=== PATIENT | female | born 1985 | race Caucasian/White ===

== ENCOUNTER 2018-03-14 06:52 | Emergency (ER) | payer BC ==
[2018-03-14] MEDS ORDERED: SODIUM CHLORIDE 0.9% 1,000 ML IV STA (07:10)
[2018-03-14] MEDS ORDERED: ONDANSETRON 4 MG/2 ML VIAL IVP STA (07:10)
[2018-03-14] MEDS ORDERED: PANTOPRAZOLE 40 MG/10 ML VIAL IVP STA (07:10)
[2018-03-14] MEDS ORDERED: MAG HYDROX/AL HYDROX/SIMETH 30 ML, HYOSCYAMINE ELIXIR 10 ML, CIMETIDINE HCL 300 MG, LID... PO STA ×4 (07:11)
--- NOTE | 2018-03-14 07:16 | ED ---
Abdominal Pain HPI - General Chief Complaint: Abdominal Pain Stated Complaint: abd pain Time Seen by Provider: 03/14/18 07:00 Source: patient, RN notes reviewed, old records reviewed Mode of arrival: ambulatory Limitations: no limitations - History of Present Illness Initial Comments: Is a 32-year-old female presents emergency department today with chief complaint of 2 days of epigastric abdominal pain radiating towards her back. She has history of cholecystectomy. She was seen by her PCP initially they thought it was either gastritis or anxiety. She is prescribed Prilosec yesterday as well as Xanax. She reports that those medications are helping with her symptoms. She does feel slightly nauseated. No vomiting episodes Patient doesn't diarrhea. She is concerned she had some alcoholic beverages few days prior that she could have pancreatitis. Patient reports that she has not had any recent alcohol. Patient denies any fevers or chills chest pain or shortness breath. - Related Data Home Medications Medication Instructions Recorded Confirmed ALPRAZolam [Xanax] 0.5 mg PO BID PRN 03/14/18 03/14/18 Ascorbic Acid [Vitamin C] 1,000 mg PO DAILY 03/14/18 03/14/18 Cholecalciferol [Vitamin D3] 1,000 unit PO DAILY 03/14/18 03/14/18 Ibuprofen [Motrin Ib] 400 mg PO Q6H PRN 03/14/18 03/14/18 Multivitamin,Therapeutic [Thera] 1 tab PO DAILY 03/14/18 03/14/18 [place]-3 Fatty Acids [[place]-3] 1,000 mg PO DAILY 03/14/18 03/14/18 Omeprazole 20 mg PO DAILY 03/14/18 03/14/18 buPROPion XL [Wellbutrin Xl] 150 mg PO DAILY 03/14/18 03/14/18 Previous Rx's Medication Instructions Recorded Sucralfate [Carafate] 1 gm PO ACHS #20 tablet 03/14/18 Allergies Allergy/AdvReac Type Severity Reaction Status Date / Time clavulanic acid Allergy Rash/Hives Verified 03/14/18 08:15 [From Augmentin] amoxicillin AdvReac Unknown Rash/Hives Verified 03/14/18 08:15 Review of Systems ROS Statement: Those systems with pertinent positive or pertinent negative responses have been documented in the HPI. ROS Other: All systems not noted in ROS Statement are negative. Past Medical History Past Medical History: No Reported History Additional Past Medical History / Comment(s): MENNORHAGIA History of Any Multi-Drug Resistant Organisms: None Reported Past Surgical History: Cholecystectomy, Hernia Repair Additional Past Surgical History / Comment(s): UMBILICAL HERNIA Past Anesthesia/Blood Transfusion Reactions: No Reported Reaction, Motion Sickness Past Psychological History: No Psychological Hx Reported Smoking Status: Former smoker Past Alcohol Use History: Rare Past Drug Use History: None Reported General Exam - General Exam Comments Initial Comments: This is a 32-year-old female. Alert and oriented. No significant distress. General: Well appearing, well nourished, in no distress. Oriented x 3, normal mood and affect . Ambulating without difficulty. Skin: Good turgor, no rash, unusual bruising or prominent lesions Hair: Normal texture and distribution. HEENT: Head: Normocephalic, atraumatic, no visible or palpable masses, depressions, or scaring. Eyes: Visual acuity intact, conjunctiva clear, sclera non-icteric, EOM intact, PERRL. Mouth: Mucous membranes moist, no mucosal lesions. Teeth/Gums: No obvious caries or periodontal disease. No gingival inflammation or significant resorption. Heart: No cardiomegaly or thrills; regular rate and rhythm, no murmur or gallop Lungs: Clear to auscultation and percussion Abdomen: Bowel sounds normal, Patient has epigastric tenderness. No evidence of masses, or hernia. Back: Spine normal without deformity or tenderness, no CVA tenderness Extremities: No amputations or deformities, cyanosis, edema or varicosities, peripheral pulses intact Musculoskeletal: Normal gait and station. No misalignment, asymmetry, crepitation, defects, tenderness, masses, effusions, decreased range of motion, instability, atrophy or abnormal strength or tone in the head, neck, spine, ribs , pelvis or extremities. Neurologic: CN 2-12 normal. Sensation to pain, touch, and proprioception normal. DTRs normal in upper and lower extremities. No pathologic reflexes. Psychiatric: Oriented X3, intact recent and remote memory, judgment and insight , normal mood and affect. Limitations: no limitations Course Vital Signs 03/14/18 06:53 Temperature 98.2 F Pulse Rate 66 Respiratory 16 Rate Blood Pressure 135/84 O2 Sat by Pulse 99 Oximetry Medical Decision Making - Medical Decision Making This is a 32-year-old female presents emergency department today with chief complaint of epigastric abdominal pain leading towards her back. She reports her past 2 days. Started on Prilosec by PCP. She taken one pill of Prilosec. Patient states that she is concerned for any worsening symptoms and returned here for evaluation. Patient is given IV fluids, GI cocktail protonic lab work was obtained. All lab work was reviewed and normal. KUB is negative for any acute process, moderate stool burn. Patient ports that she is continued to have some pain and discomfort. Her EKG was also reviewed and normal. In the semi-discussed likely gastritis or ulcer and can take some time to heal. She needs to have a bland, clear liquid diet for the next few days. I will add a prescription for Carafate. Given a referral for GI. Discussed return parameters. Patient crease to treatment plan will comply. Return parameters were discussed. - Lab Data Result diagrams: 03/14/18 07:25 03/14/18 07:25 Lab Results 03/14/18 03/14/18 03/14/18 Range/Units 07:25 07:25 07:32 WBC 6.1 (3.8-10.6) k/uL RBC 5.06 (3.80-5.40) m/uL Hgb 15.2 (11.4-16.0) gm/dL Hct 46.5 H (34.0-46.0) % MCV 91.9 (80.0-100.0) fL MCH 30.0 (25.0-35.0) pg MCHC 32.6 (31.0-37.0) g/dL RDW 12.4 (11.5-15.5) % Plt Count 111 L (150-450) k/uL Neutrophils % 77 % Lymphocytes % 16 % Monocytes % 5 % Eosinophils % 1 % Basophils % 1 % Neutrophils # 4.7 (1.3-7.7) k/uL Lymphocytes # 1.0 (1.0-4.8) k/uL Monocytes # 0.3 (0-1.0) k/uL Eosinophils # 0.1 (0-0.7) k/uL Basophils # 0.0 (0-0.2) k/uL Sodium 143 (137-145) mmol/L Potassium 4.3 (3.5-5.1) mmol/L Chloride 108 H (98-107) mmol/L Carbon Dioxide 26 (22-30) mmol/L Anion Gap 9 mmol/L BUN 9 (7-17) mg/dL Creatinine 0.58 (0.52-1.04) mg/dL Est GFR (CKD-EPI)AfAm >90 (>60 ml/min/1.73 sqM) Est GFR (CKD-EPI)NonAf >90 (>60 ml/min/1.73 sqM) Glucose 106 H (74-99) mg/dL Calcium 10.1 (8.4-10.2) mg/dL Total Bilirubin 0.4 (0.2-1.3) mg/dL AST 26 (14-36) U/L ALT 27 (9-52) U/L Alkaline Phosphatase 42 (38-126) U/L Total Protein 7.7 (6.3-8.2) g/dL Albumin 4.5 (3.5-5.0) g/dL Amylase 60 (30-110) U/L Lipase 114 (23-300) U/L Urine Color Urine Appearance (Clear) Urine pH (5.0-8.0) Ur Specific [place] (1.001-1.035) Urine Protein (Negative) Urine Glucose (UA) (Negative) Urine Ketones (Negative) Urine Blood (Negative) Urine Nitrite (Negative) Urine Bilirubin (Negative) Urine Urobilinogen (<2.0) mg/dL Ur Leukocyte Esterase (Negative) Urine HCG, Qual Not Detected (Not Detectd) 03/14/18 Range/Units 07:32 WBC (3.8-10.6) k/uL RBC (3.80-5.40) m/uL Hgb (11.4-16.0) gm/dL Hct (34.0-46.0) % MCV (80.0-100.0) fL MCH (25.0-35.0) pg MCHC (31.0-37.0) g/dL RDW (11.5-15.5) % Plt Count (150-450) k/uL Neutrophils % % Lymphocytes % % Monocytes % % Eosinophils % % Basophils % % Neutrophils # (1.3-7.7) k/uL Lymphocytes # (1.0-4.8) k/uL Monocytes # (0-1.0) k/uL Eosinophils # (0-0.7) k/uL Basophils # (0-0.2) k/uL Sodium (137-145) mmol/L Potassium (3.5-5.1) mmol/L Chloride (98-107) mmol/L Carbon Dioxide (22-30) mmol/L Anion Gap mmol/L BUN (7-17) mg/dL Creatinine (0.52-1.04) mg/dL Est GFR (CKD-EPI)AfAm (>60 ml/min/1.73 sqM) Est GFR (CKD-EPI)NonAf (>60 ml/min/1.73 sqM) Glucose (74-99) mg/dL Calcium (8.4-10.2) mg/dL Total Bilirubin (0.2-1.3) mg/dL AST (14-36) U/L ALT (9-52) U/L Alkaline Phosphatase (38-126) U/L Total Protein (6.3-8.2) g/dL Albumin (3.5-5.0) g/dL Amylase (30-110) U/L Lipase (23-300) U/L Urine Color Colorless Urine Appearance Clear (Clear) Urine pH 7.0 (5.0-8.0) Ur Specific [place] 1.003 (1.001-1.035) Urine Protein Negative (Negative) Urine Glucose (UA) Negative (Negative) Urine Ketones Negative (Negative) Urine Blood Negative (Negative) Urine Nitrite Negative (Negative) Urine Bilirubin Negative (Negative) Urine Urobilinogen <2.0 (<2.0) mg/dL Ur Leukocyte Esterase Negative (Negative) Urine HCG, Qual (Not Detectd) 03/14/18 07:30 EKG shows normal sinus rhythm normal EKG. Gingivitis 61 bpm. Intervals 144 ms. QS duration 100 ms. QT QTc is 450/453 ms. No evidence of ST elevation or T-wave inversion. - Radiology Data Radiology results: report reviewed Moderate stool burn. No evidence of bowel ejection free air. Possible 4 mm left renal calculus. Disposition Clinical Impression: Epigastric abdominal pain Disposition: HOME SELF-CARE Condition: Good Instructions: Gastritis (ED), Diet for Stomach Ulcers and Gastritis (ED) Additional Instructions: Patient is follow-up with primary care physician. Follow-up with GI specialist. Continue Prilosec daily. Add the Carafate and meals and at night. Return to emergency department if any alarming signs or symptoms occur. Prescriptions: Sucralfate [Carafate] 1 gm PO ACHS #20 tablet Is patient prescribed a controlled substance at d/c from ED?: No Referrals: Carolyn Nunez MD [Primary Care Provider] - 1-2 days Latoya Barfield MD [STAFF PHYSICIAN] - 1-2 days Time of Disposition: 08:56
[2018-03-14 07:37] LABS: Basophils % (A) 1 %; Eosinophils # (A) 0.1 k/uL (0-0.7); Eosinophils % (A) 1 %; HCT 46.5 % (34.0-46.0); HGB 15.2 gm/dL (11.4-16.0); Lymphocytes % (A) 16 %; MCHC 32.6 g/dL (31.0-37.0); MCV 91.9 fL (80.0-100.0); Mean Platelet Volume 10.1; Monocytes # (A) 0.3 k/uL (0-1.0); Monocytes % (A) 5 %; Neutrophils # (A) 4.7 k/uL (1.3-7.7); Neutrophils % (A) 77 %; Platelet Count 111 k/uL (150-450); RBC 5.06 m/uL (3.80-5.40); RDW 12.4 % (11.5-15.5); WBC 6.1 k/uL (3.8-10.6)
[2018-03-14 07:48] LABS: Appearance,Urine Clear (Clear); Bilirubin,Urine Negative (Negative); Blood,Urine Negative (Negative); Color,Urine Colorless; Glucose,Urine (UA) Negative (Negative); Ketones,Urine Negative (Negative); Leukocyte Esterase,Urine Negative (Negative); Nitrite,Urine Negative (Negative); Protein,Urine Negative (Negative); Specific Gravity,Urine 1.003 (1.001-1.035); Urobilinogen,Urine <2.0 mg/dL (<2.0)
[2018-03-14 07:57] LABS: ALT 27 U/L (9-52); AST 26 U/L (14-36); Albumin 4.5 g/dL (3.5-5.0); Alkaline Phosphatase 42 U/L (38-126); Amylase 60 U/L (30-110); Anion Gap 9 mmol/L; Blood Urea Nitrogen 9 mg/dL (7-17); Calcium 10.1 mg/dL (8.4-10.2); Carbon Dioxide 26 mmol/L (22-30); Chloride 108 mmol/L (98-107); Glucose 106 mg/dL (74-99); Lipase 114 U/L (23-300); Potassium 4.3 mmol/L (3.5-5.1); Sodium 143 mmol/L (137-145); Total Bilirubin 0.4 mg/dL (0.2-1.3); Total Protein 7.7 g/dL (6.3-8.2)
[2018-03-14] MEDS ORDERED: MORPHINE SULFATE 2 MG/ML SYRINGE IVP ONE (08:43)
--- NOTE | 2018-03-14 08:44 | XR ---
EXAMINATION TYPE: XR KUB DATE OF EXAM: 03/14/2018 CLINICAL DATA: 32 year-old female with abdominal pain, [facility] COMPARISON: 03/22/2012 FINDINGS: Lung bases are clear. No evidence for free intraperitoneal air. No dilated small bowel or air-fluid levels. Scattered air and stool seen throughout the colon extendi ng distally into the rectum. Moderate stool burden. Possible 4 mm calcification left mid abdomen. Cholecystectomy clips. IMPRESSION: 1. Moderate stool burden. 2.No evidence of bowel obstruction or free intraperitoneal air. 3. Possible 4 mm left renal calculus.
[2018-03-14 09:34] VITALS: BP 132/69; PULSE 58; RESP 18; TEMP 98.8
== END 2018-03-14 09:35 | disposition home or self-care (01) ==
LOC: EC 06:52
DX: R10.13 Epigastric pain (principal); R11.0 Nausea; M54.9 Dorsalgia, unspecified; Z79.899 Other long term (current) drug therapy; Z87.891 Personal history of nicotine dependence; Z88.0 Allergy status to penicillin; Z90.49 Acquired absence of other specified parts of digestive tract; Z98.890 Other specified postprocedural states
CPT/HCPCS: 36415; 93005; 80053; 82150; 83690; 85025; 81003; 81025; 74018; 99284; 96374; 96375 ×2; 96361; J2405; J2270; C9113

== ENCOUNTER → 2020-09-21 | Outpatient (CLI) | payer BC ==
--- NOTE | 2020-09-21 12:23 | XR ---
EXAMINATION TYPE: XR lumbosacral spine min 4V DATE OF EXAM: 09/21/2020 COMPARISON: None HISTORY: Sciatica left side TECHNIQUE: 5 view lumbar spine FINDINGS: There are 5 lumbar-type vertebral bodies. Pedicles are intact. Subtle scoliosis present ecc entric to the left. Mild posterior disc space narrowing at L4-5 is present. Remaining disc heights ar e preserved. Vertebral body heights are preserved. Facets are normal. No spondylolytic defects are ev ident. IMPRESSION: 1. Normal 5 view lumbar spine
== END | disposition home or self-care (01) ==
LOC: RADXRYALE 08:36
PROVIDERS: ATTEND Internal Medicine
DX: M54.32 Sciatica, left side (principal)
CPT/HCPCS: 72110

== ENCOUNTER → 2021-05-11 | Outpatient (CLI) | payer BC ==
[2021-05-11 08:58] VITALS: BP 112/72; PULSE 71; RESP 16; TEMP 98.3
--- NOTE | 2021-05-11 09:56 | P.HPOB ---
History of Present Illness H&P Date: 05/11/21 Chief Complaint: The patient is here for her routine gynecologic exam. This is a 35-year-old with an LMP of 2013. She is here to establish with this office. It has been about 7 years since her last pelvic exam. Her is status post vasectomy. She is status post endometrial ablation for menorrhagia in 2013 and has been amenorrheic since then. She is without gynecologic complaints. The patient has not received Covid vaccination. She wonders if she may have had Covid in 2019 or if she just had a bad cold. Since that time about 1 year ago, she has a more difficult time with a strenuous exercise. Review of Systems The patient's weight has been stable over the last year. She denies respiratory, cardiac, or G.I. problems. 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 Endometrial ablation for MENORRHAGIA. History of Any Multi-Drug Resistant Organisms: None Reported Past Surgical History: Cholecystectomy, Hernia Repair, Uterine Ablation Additional Past Surgical History / Comment(s): UMBILICAL HERNIA. Endometrial ablation in 2013. 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 - Past Family History Mother Additional Family Medical History / Comment(s): endometriosis. Maternal aunt had ovarian cancer and another maternal aunt had colon cancer. Father Family Medical History: No Reported History Medications and Allergies Home Medications Medication Instructions Recorded Confirmed Type Ibuprofen [Motrin Ib] 400 mg PO Q6H PRN 03/14/18 05/11/21 History Allergies Allergy/AdvReac Type Severity Reaction Status Date / Time clavulanic acid Allergy Rash/Hives Verified 05/11/21 08:48 [From Augmentin] amoxicillin AdvReac Unknown Rash/Hives Verified 05/11/21 08:48 Exam Vital Signs Temp Pulse Resp BP Pulse Ox 05/11/21 08:48 98.3 F 71 16 112/72 99 Intake and Output 05/10/21 05/11/21 05/11/21 22:59 06:59 14:59 Other: Weight 79.832 kg Height 5 feet 7-1/2 inches, weight 176 pounds, BMI 27.2. This is a well-developed well-nourished white female who is alert and oriented times 3 in no acute distress. HEENT: Within normal limits. NECK: Supple without mass or thyromegaly. CHEST AND LUNGS: Clear to auscultation. HEART: Regular rate and rhythm. BREASTS: Are without mass or discharge. AXILLARY EXAM: Negative for adenopathy. BACK: Negative for CVA tenderness. ABDOMEN: Soft, nontender, without palpable masses. PELVIC EXAM: Normal external genitalia. Cervix and vagina appear normal. Cervix is multiparous. There is no unusual discharge. There is no evidence of prolapse. The uterus is midposition, nongravid size and nontender. There are no palpable adnexal masses or tenderness. RECTAL EXAM: negative for mass or tenderness. EXTREMITIES: Nontender. IMPRESSION: 1. 35-year-old female whose is status post vasectomy, with normal gynecologic exam. 2. Status post endometrial ablation in 2013 for menorrhagia with resulting amenorrhea. 3. Uncertain Covid antibody status. PLAN: 1. Pap smear cotest was performed. 2. Self breast awareness was discussed with the patient. We have also discussed symptoms associated with inflammatory breast cancer. 3. Osteoporosis prevention was discussed. I have stressed the importance of adequate calcium, vitamin D and regular exercise. Recommended amounts of calcium and vitamin D were also discussed. 4. I have recommended that she look into getting Covid vaccination. In making her decision about the Covid vaccination, she would like to know if she had Covid in 2020 or if she just had a very bad cold. We talked about Covid antibody testing and she is interested in getting this. An order slip was given to the patient for this. Regardless of what her antibody test shows, she should look into getting an appropriate Covid vaccination series. 5. She was advised to return in one year for her annual well woman exam.
== END ==
LOC: WWCWWP 08:23
PROVIDERS: ATTEND Obstetrics & Gynecology
DX: Z01.419 Encounter for gynecological examination (general) (routine) without abnormal findings (principal); Z87.42 Personal history of other diseases of the female genital tract; Z98.890 Other specified postprocedural states; Z88.1 Allergy status to other antibiotic agents

== ENCOUNTER → 2023-07-06 | Day surgery (SDC) | payer BC ==
[~2023-07-06] MED LIST: LACTATED RINGERS 1,000 ML IV SCH; LIDOCAINE 1% (10MG/ML) FOR IV START INTRADERMA PRN; LIDOCAINE 2% (PF) 20 MG/ML 5 ML VIAL ONE; MIDAZOLAM 2 MG/2 ML VIAL ONE; PROPOFOL 10 MG/ML 20 ML VIAL IV ONE; fentaNYL (PF) 50 MCG/ML 2 ML AMP ONE
[2023-07-06 07:13] VITALS: TEMP 97.8
--- NOTE | 2023-07-06 07:39 | P.PCN ---
Date of Procedure: 07/06/23 Procedure(s) Performed: Brief history: Patient is a pleasant 38-year-old white female scheduled for an elective upper endoscopy as well as colonoscopy as a part of evaluation of GERD and change in bowel habits. She also has family history of colon cancer diagnosed on at age 50. Procedure performed: Esophagogastroduodenoscopy with biopsy Colonoscopy Preoperative diagnosis: GERD Change in bowel habits and family history of colon cancer Anesthesia: MAC Procedure: After informed consent was obtained from the patient was brought into the endoscopy unit and IV sedation was administered by anesthesia under continuous monitoring. Initially upper endoscopy was done. The Olympus GF 160 video en doscope was inserted inserted into the mouth and esophagus intubated without any difficulty and was gradually advanced into the stomach and duodenum and carefully examined. The bulb and second part of the duodenum appeared normal. The scope was then withdrawn into the stomach adequately insufflated with air and upon careful examination the antrum had mild gastritis and biopsies were done from this area. Mucosa of the body, cardia and fundus appeared normal. The scope was then withdrawn into the esophagus. Small sliding type hiatal hernia noted. The GE junction was located at 40 cm to the incisors. It appeared regular with no erythema erosions or ulcerations. Rest of the esophagus appeared normal. Patient tolerated the procedure well. At this time the patient continued to remain sedation. Initial digital rectal examination was normal. Olympus CF 160 video colonoscope was then inserted into the rectum and gradually advanced to the cecum without any difficulty. Careful examination was performed as the scope was gradually being withdrawn. The prep was excellent. The cecum, ascending colon, transverse colon, descending colon, sigmoid colon and rectum appeared normal. Retroflexion was performed in the rectum and no lesions were noted. Patient tolerated the procedure well. Impression: 1. Upper endoscopy revealed mild antral gastritis and small hiatal 2. Colonoscopy was within normal limits with no evidence of colorectal neoplasia Recommendations: Findings of this examination were discussed with the patient as well as her family. She was advised to continue with Nexium as needed and follow antrum reflux measures. Recommend repeat screening colonoscopy in 10 years.
[2023-07-06 08:01] VITALS: PULSE 68
[2023-07-06 08:27] VITALS: BP 124/81; RESP 15
== END ==
LOC: ORWHC2ENDO 06:24
PROVIDERS: ATTEND Internal Medicine Gastroenterology
DX: K29.50 Unspecified chronic gastritis without bleeding (principal); K21.9 Gastro-esophageal reflux disease without esophagitis; Z80.0 Family history of malignant neoplasm of digestive organs; Z79.899 Other long term (current) drug therapy
CPT/HCPCS: 81025; 88305; 45378; 43239; J2250; J3010; J2704; J2001

== ENCOUNTER 2024-12-25 06:11 | Day surgery (SDC) | payer BC ==
[2024-12-25] MEDS: IV FLUID CONTINUATION 1,000 ML IV ONE (06:24)
[2024-12-25] MEDS: SODIUM CHLORIDE 0.9% 1,000 ML IV SCH (06:35)
[2024-12-25 06:47] VITALS: BP 132/58; PULSE 60; RESP 14; TEMP 98
[2024-12-25] MEDS: SODIUM CHLORIDE 0.9% 500 ML 500 ML IV ONE (08:28)
--- NOTE | 2024-12-25 18:23 | P.EPPROC ---
- EP Procedure Note Electrophysiology Procedure Note: Diagnosis Recurrent syncope 12 EKG shows sinus rhythm normal NE narrow QRS Tilt table test per protocol Baseline blood pressure 131/80 mmHg baseline heart rate 52 beats a minute Patient was tilted upright from angle of 70 degrees per protocol There is no change in heart rate or blood pressure No evidence for neurocardiogenic syncope Immediately upon standing patient was nauseous and felt warm with a normal heart rate and blood pressure Impression Normal 2-lead EKG No evidence for neurocardiogenic syncope
== END 2024-12-25 08:28 | disposition home or self-care (01) ==
LOC: CATHEP 06:11
PROVIDERS: ATTEND Internal Medicine Clinical Cardiac Electrophysiology
DX: R55 Syncope and collapse (principal); D69.3 Immune thrombocytopenic purpura; K21.9 Gastro-esophageal reflux disease without esophagitis; R94.31 Abnormal electrocardiogram [ECG] [EKG]; R11.0 Nausea; Z88.0 Allergy status to penicillin; Z88.8 Allergy status to other drugs, medicaments and biological substances
CPT/HCPCS: 81025; 93660